=== PATIENT | female | born 1960 | race Caucasian/White ===

== ENCOUNTER 2018-04-07 09:22 | Day surgery (SDC) | payer BC ==
[2018-04-07] MEDS ORDERED: D5 LR 1000 ML 1,000 ML IV ONE (09:47)
[2018-04-07] MEDS ORDERED: DIPRIVAN VIAL 20 ML ONE (10:16)
[2018-04-07 11:03] VITALS: BP 136/60
== END 2018-04-07 11:00 | disposition home or self-care (01) ==
LOC: SURG1 09:22
PROVIDERS: ATTEND Internal Medicine Gastroenterology
PROC: 0DB68ZX Excision of Stomach, Via Natural or Artificial Opening Endoscopic, Diagnostic (ICD-10-PCS; principal; 2018-04-07 11:30)
PROC: 0DJ08ZZ Inspection of Upper Intestinal Tract, Via Natural or Artificial Opening Endoscopic (ICD-10-PCS; principal; 2018-04-07 11:30)
PROC: 0DB88ZX Excision of Small Intestine, Via Natural or Artificial Opening Endoscopic, Diagnostic (ICD-10-PCS; principal; 2018-04-07 11:30)
DX: R10.13 Epigastric pain (principal); R10.11 Right upper quadrant pain; K20.8 Other esophagitis; K29.60 Other gastritis without bleeding; K29.80 Duodenitis without bleeding; K21.9 Gastro-esophageal reflux disease without esophagitis
CPT/HCPCS: A4217; J3490; J7120